=== PATIENT | male | born 1990 | race Caucasian/White ===

== ENCOUNTER 2016-12-03 23:38 | Inpatient (IN) ==
[2016-12-03 23:56] LABS: MANUAL DIFF NEEDED? NO
[2016-12-03 23:58] LABS: BASO% 0.9 % (0.0-0.8); EOS% 1.8 % (0.0-10.0); HEMATOCRIT 43.1 % (42.0-52.0); HEMOGLOBIN 14.5 g/dL (14.0-18.0); IMM GRAN# 0.01 X1000 (0.0-0.04); IMM GRAN% 0.2 % (0.0-0.5); LYMPH# 2.38 X1000 (1.2-3.4); LYMPH% 43.4 % (20.5-51.1); MCH 28.5 PG (27-31); MCHC 33.6 g/dL (33-37); MCV 84.7 FL (81-99); MONO# 0.54 X1000 (0.11-0.59); MONO% 9.9 % (1.7-9.3); MPV 12.7 FL (7.4-10.4); NEUT% 43.8 % (42.2-75.2); PLT 209 X1000 (130-400); RBC 5.09 XMIL (4.7-6.1)
[2016-12-04 00:05] LABS: UR AMPHETAMINES QUAL NONE DETECTED (NONE DETECT); UR BARBITUATES QUAL NONE DETECTED (NONE DETECT); UR BENZODIAZEPIN QUAL NONE DETECTED (NONE DETECT); UR COCAINE QUAL NONE DETECTED (NONE DETECT); UR MDMA QUAL NONE DETECTED (NONE DETECT); UR METHADONE QUAL NONE DETECTED (NONE DETECT); UR METHAMPHETAMINE QUAL NONE DETECTED (NONE DETECT); UR OPIATES QUAL NONE DETECTED (NONE DETECT); UR OXYCODONE QUAL NONE DETECTED (NONE DETECT); UR PCP QUAL NONE DETECTED (NONE DETECT)
[2016-12-04 00:06] LABS: UR CANNABINOIDS QUAL PRESUMPTIVE POSITIVE (NONE DETECT); UR TCA QUAL NONE DETECTED (NONE DETECT)
[2016-12-04 00:13] LABS: BLOOD TYPE ARTERIAL; METHB 1.2 % (0.0-1.5); O2(CT) 18.7 mL/dL (15.0-23.0); PCO2(98.6) 34 mmHg (35-45); PO2(98.6) 100 mmHg (60-100); SAMPLE BLOOD; SAO2 99.1 % (95.0-100.0); THB 14.4 g/dL (11.5-17.4)
[2016-12-04 00:19] LABS: ALLEN TEST YES; DRAW SITE L RADIAL; MODALITY ROOM AIR
[2016-12-04] MEDS ORDERED: NS 1,000 ML IV ONE ×2 (00:35→01:45)
--- NOTE | 2016-12-04 00:42 | EKG Report ---
Test Performed on : 12/04/2016 00:00:17 AM Test Reason : Suspected Overdose Blood Pressure : / mmHG Vent. Rate : 108 BPM Atrial Rate : 108 BPM P-R Int : 150 ms QRS Dur : 086 ms QT Int : 356 ms P-R-T Axes : 082 080 071 degrees QTc Int : 477 ms Sinus tachycardia. Otherwise normal ECG When compared with ECG of 02-DEC-2016 22:13, No significant change was found Unconfirmed Result
[2016-12-04 00:48] LABS: ACETAMINOPHEN 16.7 ug/mL (10-30); AGAP 15; ALBUMIN 4.2 g/dL (3.5-5.0); ALKALINE PHOSPHATASE 55 U/L (32-122); BUN 10 mg/dL (8-22); CALCIUM 8.6 mg/dL (8.8-10.2); CHLORIDE 104 mmol/L (98-107); COSMO 282; GOT 13 U/L (10-34); GPT 16 U/L (10-44); POTASSIUM 3.4 mmol/L (3.5-5.1); SODIUM 142 mmol/L (136-145); TCO2 23 mmol/L (25-35); TOTAL PROTEIN 6.7 g/dL (6.3-8.3)
[2016-12-04 02:47] LABS: ACETAMINOPHEN 15.4 ug/mL (10-30)
[2016-12-04 04:51] LABS: ACETAMINOPHEN 12.7 ug/mL (10-30)
[2016-12-04 06:50] LABS: ACETAMINOPHEN 9.9 ug/mL (10-30)
--- NOTE | 2016-12-04 07:31 | Diag Imaging Result Doc PS360 ---
EXAM: KUB ABDOMEN HISTORY: asa overdose TECHNIQUE: KUB COMMENT: There is some stool in the right upper quadrant. There is no evidence of small bowel or gastric distention. No evidence organomegaly or mass is present. The lower portion of the pelvis is not included on the image. The regional skeleton appears to be intact. IMPRESSION: Nonspecific abdomen. Electronically signed by Vincent Escamilla 12/04/2016 7:28 AM
[2016-12-04] MEDS ORDERED: ATIVAN IM PRN (12:56)
[2016-12-04] MEDS ORDERED: NS 1,000 ML IV SCH (13:06)
[2016-12-04] MEDS ORDERED: NICODERM PATCH TD ONE (13:07)
[2016-12-04] MEDS: NORCO-7.5 PO PRN ×3 (13:49→22:15)
[2016-12-04] MEDS: LIBRIUM PO SCH ×2 (13:49→18:10)
[2016-12-04] MEDS: PROTONIX IV SCH (13:50)
[2016-12-04] MEDS: SODIUM CHLORIDE 0.9% INJ SCH (13:50)
[2016-12-04] MEDS: NS 1,000 ML IV SCH (13:50)
[2016-12-04] MEDS: M.V.I.-12 10 ML, FOLIC ACID 1 MG, MAGNESIUM SULFATE 1 GM, THIAMINE 100 MG in NS 1,000 ML IV SCH (16:31)
[2016-12-04] MEDS: ATIVAN PO PRN ×2 (18:10→23:37)
[2016-12-05] MEDS: NS 1,000 ML IV SCH ×4 (01:18→23:49)
[2016-12-05] MEDS: LIBRIUM PO SCH ×4 (01:19→20:47)
[2016-12-05] MEDS: NORCO-7.5 PO PRN ×6 (03:03→23:50)
[2016-12-05 06:12] LABS: HEMATOCRIT 37.7 % (42.0-52.0); HEMOGLOBIN 12.4 g/dL (14.0-18.0); MCH 28.2 PG (27-31); MCHC 32.9 g/dL (33-37); MCV 85.7 FL (81-99); MPV 12.3 FL (7.4-10.4); RBC 4.4 XMIL (4.7-6.1)
[2016-12-05 06:29] LABS: POTASSIUM 3.7 mmol/L (3.5-5.1); SODIUM 138 mmol/L (136-145)
[2016-12-05 06:30] LABS: AGAP 7; ALBUMIN 3.6 g/dL (3.5-5.0); ALKALINE PHOSPHATASE 48 U/L (32-122); BUN 10 mg/dL (8-22); CALCIUM 8.8 mg/dL (8.8-10.2); CHLORIDE 104 mmol/L (98-107); COSMO 275; GOT 11 U/L (10-34); GPT 12 U/L (10-44); MAGNESIUM 2.1 mg/dL (1.5-2.7); TCO2 27 mmol/L (25-35); TOTAL PROTEIN 5.8 g/dL (6.3-8.3)
[2016-12-05] MEDS: PHENERGAN PO PRN ×3 (07:42→20:46)
[2016-12-05] MEDS: ATIVAN PO PRN ×3 (07:45→20:46)
--- NOTE | 2016-12-05 10:55 | HISTORY AND PHYSICAL ---
CHIEF COMPLAINT: Unresponsive. HISTORY OF PRESENT ILLNESS: This is a 25-year-old gentleman who is well known to our service having multiple admissions related to depression and suicidal attempts, swallowing razor blades repeatedly requiring abdominal surgery. He had has had a complicated course being seen in the emergency room on the afternoon of 12/02/2016 complaining of left upper quadrant flank pain. At that time, he had a negative CAT scan and was discharged from the emergency room. He then presented to the emergency room about 9 hours later stating that he had suicidal ideation and depression. He stated he had no plan at this time, but he was tearful. He was given 2 mg of Ativan and after that he kept requesting to leave the ER. The ER physician reportedly he ultimately walked down that ER as an elopement. This was at approximately 6:00 in the afternoon. He then presented per EMS after being found on the side of the road unresponsive. This was about 11:00 that evening with a report per EMS that the patient had been taking multiple medicines over- the-counter, as well as drinking alcohol. It appears in reading the ER notes that the patient may have taken an epcx-zit-mvryyyn medication containing salicylates, as a received instructions for care regarding monitoring. He did have salicylates, 4 levels that were all less than 3. He was also found to have a blood alcohol level of 153. He was admitted to ICU, given IV hydration for further evaluation and treatment. PAST MEDICAL HISTORY: Depression, Suicidal ideation with multiple suicide attempts and pancreatitis. PAST SURGICAL HISTORY: Appendectomy, tonsillectomy, cervical fusion and foreign object removal from his GI tract twice. SOCIAL HISTORY: He smokes. He drinks alcohol and he does use illicit drugs. ALLERGIES: Zofran which causes a rash. HOME MEDICATIONS: None. REVIEW OF SYSTEMS: Unable to obtain at present. PHYSICAL EXAMINATION: GENERAL: This is a 25-year-old male who is lying in the bed, in no distress. VITAL SIGNS: Blood pressure is 99/50 with a heart rate of 81, respirations are 14 to 18. Temperature is 98.4 degrees. Oxygen saturations are 96% to 100% on room air. HEENT: Head is normocephalic, atraumatic. Pupils equal, round, react to light. EOMs are intact. Sclerae anicteric. Mucous membranes are moist. NECK: Supple with trachea midline. CARDIOVASCULAR: Regular rate and rhythm. No rubs, murmurs, or gallops. S1, S2 appreciated. PULMONARY: Breath sounds are clear with no increased work of breathing noted. GASTROINTESTINAL: Abdomen is soft, nontender, nondistended with bowel sounds in all 4 quadrants. MUSCULOSKELETAL: Good range of motion of joints. EXTREMITIES: No clubbing, cyanosis, or edema. Calves are nontender. Pulses are palpable x4. NEUROLOGIC: He is alert and oriented. Cooperative with cranial nerves 2-12 grossly intact. DIAGNOSTICS: WBC is 5.4 with a hemoglobin of 14.5, hematocrit 43.1 and platelets of 209,000. Sodium is 142, potassium 3.4, BUN 10, creatinine 0.8, with a glucose of 67. Salicylate level is less than 3 on multiple occasions. Tylenol level is 9.9 to 16.7, all within normal limits. Cannabinoids is presumed positive with a blood alcohol of 153. ASSESSMENT AND PLAN: 1. Suicidal ideation. The patient will be placed in ICU for close monitoring. Of note, there is a court hold on the patient for 48 hours which will end December 05 at 4:30. We will attempt to find psychiatric placement for the patient. brush worker's have begun looking. 2. Alcohol abuse. We will start a low Librium taper. Monitor for alcohol withdrawal and delirium tremens. We will give a banana bag. 3. Illicit drug use. Aware. 4. Hypokalemia. We will monitor electrolytes and replete as appropriate. 5. Tobacco abuse. We will give a nicotine patch. Further treatments pending hospital course. Dictated by BLADIMIR Casillas for Robert Chris MD cc: BLADIMIR Casillas MD
[2016-12-05] MEDS ORDERED: NICODERM PATCH ONE (12:50)
[2016-12-05] MEDS: M.V.I.-12 10 ML, FOLIC ACID 1 MG, MAGNESIUM SULFATE 1 GM, THIAMINE 100 MG in NS 1,000 ML IV SCH (14:19)
[2016-12-05] MEDS: PROTONIX IV SCH (14:20)
[2016-12-05] MEDS: SODIUM CHLORIDE 0.9% INJ SCH (14:20)
[2016-12-05] MEDS: NICODERM PATCH TD SCH (14:21)
[2016-12-06] MEDS: NS 1,000 ML IV SCH ×4 (03:00→21:50)
[2016-12-06] MEDS: ATIVAN PO PRN ×4 (04:40→21:50)
[2016-12-06] MEDS: NORCO-7.5 PO PRN ×5 (04:40→20:06)
[2016-12-06] MEDS: LIBRIUM PO SCH ×3 (04:40→21:50)
[2016-12-06] MEDS: PHENERGAN PO PRN ×4 (04:41→21:50)
[2016-12-06] MEDS: PROTONIX PO SCH (07:56)
[2016-12-06] MEDS: NICODERM PATCH TD SCH ×2 (07:56→08:32)
[2016-12-06] MEDS: M.V.I.-12 10 ML, FOLIC ACID 1 MG, MAGNESIUM SULFATE 1 GM, THIAMINE 100 MG in NS 1,000 ML IV SCH (14:10)
--- NOTE | 2016-12-06 15:43 | PROGRESS NOTE ---
DATE: 12/06/2016 SUBJECTIVE: The patient is a little anxious. He states he needs a higher nicotine patch. He wants to go out to the floor where he can walk around more. He denies any suicidal ideation. OBJECTIVE: Vital Signs: Blood pressure is 117/55 with a heart rate of 70, respirations are 16, temperature is 98.3 degrees with a room air saturation of 97%. Cardiovascular: Regular rate and rhythm. S1 and S2 appreciated. Pulmonary: Breath sounds are clear with no increased work of breathing noted. Gastrointestinal: Abdomen is soft, nontender, nondistended with bowel sounds in all 4 quadrants. Extremities: No clubbing, cyanosis, or edema. Calves are nontender and pulses are palpable x4. Neurologic: He is alert and oriented x3 and cooperative. He does make eye contact and engage in conversation. PROBLEM LIST: 1. Suicidal ideation. The patient has remained in ICU for close monitoring. He did deny any suicidal ideation during our exam earlier today. Therefore, we are going to have the patient re-evaluated by Clem Bhandari. 2. Alcohol abuse. We will continue his Librium taper. We have seen no signs of withdrawal or delirium tremens. 3. Illicit drug use, aware. 4. Hypokalemia, resolved. 5. Tobacco abuse. Will continue with nicotine patch. As the patient has stated to the staff that he is not suicidal, we have opted to have him re- evaluated by Clem Bhandari and further treatment will depend on the results of their evaluation. Dictated by BLADIMIR Casillas for Robert Chris MD cc: BLADIMIR Casillas MD
[2016-12-07] MEDS: NORCO-7.5 PO PRN ×3 (00:10→08:21)
[2016-12-07] MEDS: LIBRIUM PO SCH ×2 (04:13→20:07)
[2016-12-07] MEDS: PHENERGAN PO PRN ×3 (04:14→20:07)
[2016-12-07] MEDS: ATIVAN PO PRN ×2 (04:14→10:24)
[2016-12-07] MEDS: NICODERM PATCH TD SCH (08:20)
[2016-12-07] MEDS: PROTONIX PO SCH (08:21)
[2016-12-07] MEDS ORDERED: NORCO-7.5 PO PRN (10:53)
[2016-12-07] MEDS: M.V.I.-12 10 ML, FOLIC ACID 1 MG, MAGNESIUM SULFATE 1 GM, THIAMINE 100 MG in NS 1,000 ML IV SCH (13:21)
--- NOTE | 2016-12-07 14:48 | PROGRESS NOTE ---
DATE: 12/07/2016 SUBJECTIVE: The patient is less anxious today. He voices no specific complaints. OBJECTIVE: Vital Signs: Blood pressure is 137/74 with a heart rate of 85, respirations are 18, temperature is 98.3 degrees oral with room air saturations 96%. Cardiovascular: Regular rate and rhythm. S1 and S2 appreciated. Pulmonary: Breath sounds are clear with no increased work of breathing noted. Gastrointestinal: Abdomen soft, nontender, nondistended. Bowel sounds in all 4 quadrants. Neurologic: He is alert and orient x3. He is cooperative. PROBLEM LIST: 1. Suicidal ideation. The patient continues to remain in ICU for close monitoring as he did tell Clem Bhandari his evaluation yesterday that he was suicidal. Social work will continue to look for placement. 2. Alcohol abuse. Will continue his Librium taper. We have seen no signs of withdrawal or DTs. 3. Illicit drug use. Aware. 4. Hypokalemia resolved. 5. Tobacco abuse. Will continue his nicotine patch. Dictated by BLADIMIR Casillas for Robert Chris MD cc: BLADIMIR Casillas MD
[2016-12-08] MEDS: PHENERGAN PO PRN ×4 (04:21→22:58)
[2016-12-08] MEDS: PROTONIX PO SCH (06:17)
[2016-12-08] MEDS ORDERED: NORCO-7.5 PO PRN (09:21)
[2016-12-08] MEDS ORDERED: LIBRIUM ONE (09:36)
[2016-12-08] MEDS: NICODERM PATCH TD SCH (09:39)
[2016-12-08] MEDS: LIBRIUM PO SCH (09:40)
[2016-12-08] MEDS ORDERED: CELEXA PO SCH (11:00)
--- NOTE | 2016-12-08 12:12 | PROGRESS NOTE ---
DATE: 12/08/2016 SUBJECTIVE: No new changes. Patient still states that if he were to go home and started feeling a certain way that he would hurt himself. OBJECTIVE: Vital Signs: Temperature 97, pulse 90, respiratory rate 16, blood pressure 106/66. Saturation 97% on room air. General: Patient is awake, alert. He is currently in no respiratory distress. HEENT: Normocephalic. Neck: Supple. Cardiovascular: Regular rate. Chest: Clear. ASSESSMENT: 1. Suicidal ideations. 2. Chronic alcohol abuse. 3. Chronic drug abuse. 4. Hypokalemia. 5. Chronic tobacco abuse. PLAN: Discussed with patient that we are going to continue to wean him down and eventually off of Librium and hydrocodone as certainly hydrocodone does not fix anything. He is currently down to once a day on each and will stop after today's dose. We will keep him in the ICU as he continues to state that he is suicidal. We will start on Celexa. Ask Contract Technical Writer to continue to assist in finding further placement. cc: Robert Chris MD
[2016-12-08] MEDS: M.V.I.-12 10 ML, FOLIC ACID 1 MG, MAGNESIUM SULFATE 1 GM, THIAMINE 100 MG in NS 1,000 ML IV SCH (14:30)
[2016-12-09 04:06] VITALS: BP 99/62
[2016-12-09] MEDS: PHENERGAN PO PRN (06:00)
[2016-12-09] MEDS: PROTONIX PO SCH (06:00)
[2016-12-09] MEDS ORDERED: LIBRIUM PO SCH (09:00)
--- NOTE | 2016-12-22 20:34 | PROVIDER DOCUMENTATION ---
This chart was entered by Chiara Castillo Scribe, acting as scribe for Anselmo Booker MD. HPI-Psychological Disorder <Mane Cassidy - Last Filed: 12/04/16 09:19> - General Source: patient - History of Present Illness-Psych Onset/Duration: reports: unsure Timing: reports: improving Severity: reports: moderate Psychiatric Complaints: reports: depressed, suicidal ideation Substance Use: reports: alcohol Previous psych related hospitalizations?: No Similar Symptoms Previously?: Yes Recently seen or treated by another doctor?: Yes <Anselmo Booker - Last Filed: 12/22/16 20:33> - General Chief Complaint: Suicide Attempt Stated Complaint: unresponsive Time Seen by Provider: 12/03/16 23:38 Allergies/Adverse Reactions: Patient Allergies Allergy/AdvReac Type Severity Reaction Status Date / Time ondansetron HCl * Allergy RASH Verified 12/09/16 10:19 [From Zofran (as hydrochloride)] Home Medications: Home Medication List Medication Instructions Recorded Confirmed Last Taken Type NK [No Home Medications] 12/02/16 12/04/16 Unknown History - History of Present Illness-Psych Nature of Presenting Problem: 25 year old M presents to the ED via EMS unresponsive secondary to a possible overdose. Pt awoke while nursing staff was working with pt and states that he took 50 ZzzQuil, 15 Goody's powder, and 2 beers. Pt was in the ED earlier for SI and depression. PT left AMA. Pt was found by a passerby unresponsive in a ditch. Pt was given 2 mg of Narcan COSMETIC CHEMIST with no results. (Chiara Castillo) 25 year old M presents to the ED via EMS unresponsive secondary to a possible overdose. Pt awoke while nursing staff was working with pt and states that he took 50 ZzzQuil, 15 Goody's powder, and 2 beers. Pt was in the ED earlier for SI and depression. PT left AMA. Pt was found by a passerby unresponsive in a ditch. Pt was given 2 mg of Narcan COSMETIC CHEMIST with no results. (Anselmo Booker) Review of Systems - Adult - REVIEW OF SYSTEMS - ADULT Constitutional: denies: chills, fever Eyes: reports: no symptoms reported Ears, Nose, Mouth & Throat: reports: no symptoms reported Cardiovascular: reports: no symptoms reported Respiratory: reports: no symptoms reported Gastrointestinal: denies: nausea, vomiting Genitourinary: reports: no symptoms reported Musculoskeletal: reports: no symptoms reported Integumentary: denies: skin sores/ulcer, skin thickening Neurological: denies: dizziness/vertigo, headache/migraines Psychiatric: reports: depression, suicidal thoughts Endocrine: reports: no symptoms reported Hematologic/Lymphatic: reports: no symptoms reported Allergic/Immunologic: reports: no symptoms reported All Other Systems: Reviewed and Negative <Anselmo Booker - Last Filed: 12/22/16 20:33> Past History - Adult - PAST MEDICAL HISTORY-ADULT Review of Records: reports: Nursing Assessment Review, Medications Reviewed Major Childhood Illnesses: reports: denies history Respiratory: reports: asthma Gastrointestinal: reports: pancreatitis Musculoskeletal: reports: other (cspine surgery) Psychiatric: reports: depression, psychiatric problems, suicide attempt - PRIOR SURGERIES/PROCEDURES Surgical/Procedure History: reports: recent surgery (abdominal surgery due to swallowing razors), appendectomy, tonsillectomy, back/neck (cervical fusion) - IMMUNIZATION STATUS Childhood Immunizations: See Nurse Assessment Flu Vaccine: See Nurse Assessment - FAMILY HISTORY Family History: reviewed, not pertinent - SOCIAL HISTORY Smoking: cigarettes Provider spent 3-5 mins advising pt. on dangers of tobacco.: Discussed manners to quit use, and f/u contacts for add'l counseling. 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 Pt is stable. Repeaed ASA and Acetaminophen and ETOH levels are negative for OD by now. Pt is medically cleared for Psych placement. Pt has a court hold order now and will be placed at [facility].) - CONSULTS/PCP/HOSPITALIST Notification #1 *Consult/PCP/Hospitalist*: Dr. Chris Reason/Comments: Admit to ICU Consult Disposition: Will see in ED, Admit <Zeke Cassidytrevor X - Last Filed: 12/04/16 09:19> - PLAN OF CARE/RESULTS Result Diagrams: 12/05/16 05:15 12/05/16 05:15 - EKG 1 Time of EKG reading by physician:: 00:00 EKG Read and Signed by:: Anselmo Booker EKG Interpretation (*Must complete 3 of following elements*): Normal Rate: 108 Rhythm: sinus tachycardia [place]: normal <Anselmo Booker - Last Filed: 12/22/16 20:33> - PLAN OF CARE/RESULTS Progress/Plan/Lab Results: Orders Category Date Time Status Admit - [facility] Routine AdmDCTranf 12/04/16 01:45 Ordered Cardiac Monitoring DIRECTED Care 12/03/16 23:48 Completed Finger Stick Blood Sugar (ED) DIRECTED Care 12/03/16 23:48 Completed Kumar Cath Insertion ORDERED Care 12/04/16 00:12 Hold Neurological Check Q1h Care 12/04/16 01:45 Completed Restraint/Seclude Init/Renew V NOW Care 12/04/16 00:13 Completed Saline Loc DIRECTED Care 12/03/16 23:48 Completed Vital Signs Order Q4HR Care 12/04/16 01:45 Hold KUB ABDOMEN [RAD] Stat Exams 12/04/16 00:31 Completed ABG [RESP] Routine Lab 12/03/16 23:38 Completed ACETAMINOPHEN [TDM] Stat Lab 12/03/16 23:43 Completed ACETAMINOPHEN [TDM] Stat Lab 12/04/16 02:20 Completed ACETAMINOPHEN [TDM] Timed Lab 12/04/16 04:05 Completed ACETAMINOPHEN [TDM] Timed Lab 12/04/16 06:14 Completed ALCOHOL BLOOD Stat Lab 12/03/16 23:43 Completed CBC WITH ELECTRONIC DIFF [HEME] Stat Lab 12/03/16 23:43 Completed COMPREHENSIVE METABOLIC PANEL [CHEM] Stat Lab 12/03/16 23:43 Completed SALICYLATES [TDM] Stat Lab 12/03/16 23:43 Completed SALICYLATES [TDM] Stat Lab 12/04/16 02:20 Completed SALICYLATES [TDM] Timed Lab 12/04/16 04:05 Completed SALICYLATES [TDM] Timed Lab 12/04/16 06:14 Completed URINE DRUG SCREEN PL Stat Lab 12/03/16 23:35 Completed 0.9% Sodium Chloride Inj [Ns] 1,000 ml Med 12/04/16 01:45 Discontinued IV 150 mls/hr 0.9% Sodium Chloride Inj [Ns] 1,000 ml Med 12/04/16 00:35 Discontinued IV 999 mls/hr Oxygen Device Routine Oth 12/04/16 01:47 Completed Pulse Oximetry Stat Oth 12/03/16 23:48 Completed EKG [EKG] Stat Ther 12/03/16 23:48 Draft Departure - Departure Date of Disposition Decision: 12/04/16 Time of Disposition Decision: 07:28 Certified Medical Emergency: Emergent - Critical Care Note This patient required my direct & personal management of CC.: Yes Total Time (mins): 45 Critical Care Statement: This patient required my direct personal management to treat or rule out processes, the absence of which, could potentiallly result in sudden, clinically significant life or limb threatening deterioration. <Mane Cassidy - Last Filed: 12/04/16 09:19> - Departure Date of Disposition Decision: 12/04/16 Time of Disposition Decision: 07:29 Certified Medical Emergency: Emergent - Critical Care Note This patient required my direct & personal management of CC.: Yes <Anselmo Booker - Last Filed: 12/22/16 20:33> - Departure DIAGNOSIS: Suicide attempt Psychosis Qualifiers: Psychosis type: unspecified psychosis type Qualified Code(s): F29 - Unspecified psychosis not due to a substance or known physiological condition Overdose Qualifiers: Encounter type: initial encounter Injury intent: intentional self-harm Qualified Code(s): T50.902A - Poisoning by unspecified drugs, medicaments and biological substances, intentional self-harm, initial encounter Disposition: ADMITTED INPATIENT 09 Condition: Stable This chart was documented by the indicated scribe, (Chiara Castillo, [place]) and accurately reflects the services I performed and decisions made by me, Anselmo Booker MD, as attested by the provider's signature.
--- NOTE | 2016-12-29 11:41 | DISCHARGE SUMMARY ---
ADMISSION DATE: 12/04/2016 DISCHARGE DATE: 12/09/2016 DISCHARGE DIAGNOSES: 1. Patient left against medical advice. 2. Suicidal ideations. Patient declined any further treatment at [facility] or any other facility. He states he is no longer suicidal. 3. Chronic alcohol abuse. 4. Illicit drug use. 5. Hypokalemia. 6. Chronic tobacco abuse. BRIEF HOSPITAL COURSE: The patient is a 25-year-old male who unfortunately has had multiple previous admissions due to depression, suicide attempts, swallowing razor blades requiring surgery etc. This time as noted on the HPI, he was admitted for court hold that ended on 12/05/2016 at 4:30 p.m. The patient actually did intentionally stay in the hospital several more days, each day stating that he would harm himself if he left the hospital, [facility]. I did not feel as though they were the appropriate facility as he is a dual diagnosis patient. Patient remained in the hospital for several days as we were attempting to look for a bed for him elsewhere. The patient continued to have multiple days of severe complaints of pain throughout his entire body that would only be helped by IV Dilaudid by his on admission. After several days, no reasoning for his severe pain was found and therefore the IV Dilaudid was discontinued. He continued to complain of the need of IV Dilaudid and the need to continue IV Dilaudid. After patient realized that this was no longer an option and that he was not going to be given IV Dilaudid in the hospital any further, the patient decided that he no longer was suicidal. He signed a no harm contract and left the hospital without any further assistance with discharge planning. cc: Robert Chris MD
== END 2016-12-09 08:29 | disposition left against medical advice (07) ==
LOC: P.ED 23:38 → P.EDIPHOLD 12-04 03:08 → P.ICU 12-04 12:00
PROVIDERS: ATTEND Family Medicine

== ENCOUNTER 2017-03-07 04:05 | Inpatient (IN) ==
--- NOTE | 2017-03-07 04:54 | EKG Report ---
Test Performed on : 03/07/2017 04:28:26 AM Test Reason : psych Blood Pressure : / mmHG Vent. Rate : 075 BPM Atrial Rate : 075 BPM P-R Int : 158 ms QRS Dur : 104 ms QT Int : 398 ms P-R-T Axes : 139 126 086 degrees QTc Int : 444 ms Suspect arm lead reversal, interpretation assumes no reversal Unusual P axis, possible ectopic atrial rhythm. Right axis deviation Abnormal ECG When compared with ECG of 04-DEC-2016 00:00, Ectopic atrial rhythm. has replaced Sinus rhythm. QRS axis shifted right Unconfirmed Result
[2017-03-07 05:14] LABS: MANUAL DIFF NEEDED? NO
[2017-03-07 05:22] LABS: BILIRUBIN URINE NEGATIVE (NEGATIVE); BLOOD URINE NEGATIVE (NEGATIVE); CLARITY CLEAR (CLEAR); COLOR STRAW; GLUCOSE URINE NEGATIVE (NEGATIVE); LEUKOCYTES URINE NEGATIVE (NEGATIVE); NITRITE URINE NEGATIVE (NEGATIVE); PROTEIN URINE NEGATIVE (NEGATIVE); SP GRAVITY URINE 1.005; UROBILINOGEN URINE NORMAL
[2017-03-07 05:24] LABS: BASO% 0.8 % (0.0-0.8); EOS# 0.44 X1000 (0.0-0.7); EOS% 7.3 % (0.0-10.0); HEMATOCRIT 39.5 % (42.0-52.0); HEMOGLOBIN 13.2 g/dL (14.0-18.0); LYMPH# 3.06 X1000 (1.2-3.4); LYMPH% 50.7 % (20.5-51.1); MCH 27.5 PG (27-31); MCHC 33.4 g/dL (33-37); MCV 82.3 FL (81-99); MONO# 0.65 X1000 (0.11-0.59); MONO% 10.8 % (1.7-9.3); MPV 11.4 FL (7.4-10.4); NEUT% 30.4 % (42.2-75.2); PLT 206 X1000 (130-400)
[2017-03-07 05:25] LABS: UR AMPHETAMINES QUAL NONE DETECTED (NONE DETECT); UR BARBITUATES QUAL NONE DETECTED (NONE DETECT); UR BENZODIAZEPIN QUAL NONE DETECTED (NONE DETECT); UR COCAINE QUAL NONE DETECTED (NONE DETECT); UR MDMA QUAL NONE DETECTED (NONE DETECT)
[2017-03-07 05:26] LABS: UR CANNABINOIDS QUAL NONE DETECTED (NONE DETECT); UR METHADONE QUAL NONE DETECTED (NONE DETECT); UR METHAMPHETAMINE QUAL NONE DETECTED (NONE DETECT); UR OPIATES QUAL NONE DETECTED (NONE DETECT); UR OXYCODONE QUAL NONE DETECTED (NONE DETECT); UR PCP QUAL NONE DETECTED (NONE DETECT); UR TCA QUAL NONE DETECTED (NONE DETECT)
--- NOTE | 2017-03-07 05:33 | PROVIDER DOCUMENTATION ---
HPI-Psychological Disorder - General Chief Complaint: Foreign Body Stated Complaint: SWALLOWED FOREIGN BODY Time Seen by Provider: 03/07/17 05:28 Source: patient, EMS Allergies/Adverse Reactions: Patient Allergies Allergy/AdvReac Type Severity Reaction Status Date / Time prochlorperazine Allergy Unknown Verified 03/07/17 04:16 [From Compazine] Home Medications: Home Medication List Medication Instructions Recorded Confirmed Last Taken Type NK [No Home Medications] 12/02/16 03/07/17 Unknown History - History of Present Illness-Psych Nature of Presenting Problem: PATIENT IS INEBRIATED. HE AND HIS FRIEND WERE DRINKING AND SWALLOWED FOREIGN BODIES AND BOTH CALLED AMBULANCE AND INFORMED THEM THAT THEY WERE BOTH SUICIDAL. HE ALLEGEDLY SWALLOWED RAZOR BLADES. HE HAS DONE THIS BEFORE IN THE PAST. HE DENIES ANY COMPLAINTS. NO ABDOMINAL PAIN AND NO ACTIVE BLEEDING. Onset/Duration: reports: 1/2 hour ago Timing: reports: still present Severity: reports: mild Situational problems related to:: reports: N/A, significant other, sexual orientation Psychiatric Complaints: reports: angry, agitated Substance Use: reports: alcohol, marijuana, amphetamines Patient arrived by:: EMS called by patient Similar Symptoms Previously?: Yes Recently seen or treated by another doctor?: Yes - Suicidal Ideation Suicide Risk Assessment: male sex, drug or ETOH abuse Clinician's estimation of suicide risk?: low risk Suicidal Attempt Method: reports: Overdose Review of Systems - Adult - REVIEW OF SYSTEMS - ADULT Constitutional: reports: no symptoms reported Eyes: reports: no symptoms reported Ears, Nose, Mouth & Throat: reports: no symptoms reported Cardiovascular: reports: no symptoms reported Respiratory: reports: no symptoms reported Gastrointestinal: reports: no symptoms reported Genitourinary: reports: no symptoms reported Musculoskeletal: reports: no symptoms reported Integumentary: reports: no symptoms reported Neurological: reports: no symptoms reported Psychiatric: reports: see HPI, alcohol/drug dependence, depression, emotional problems, suicidal thoughts Endocrine: reports: no symptoms reported Hematologic/Lymphatic: reports: no symptoms reported Allergic/Immunologic: reports: no symptoms reported All Other Systems: Reviewed and Negative Past History - Adult - PAST MEDICAL HISTORY-ADULT Review of Records: reports: Old Records Reviewed, Nursing Assessment Review, Medications Reviewed, Social history reviewed & non-contributory. Respiratory: reports: asthma Gastrointestinal: reports: pancreatitis Musculoskeletal: reports: other (cspine surgery) Psychiatric: reports: depression, psychiatric problems, suicide attempt - PRIOR SURGERIES/PROCEDURES Surgical/Procedure History: reports: recent surgery (abdominal surgery due to swallowing razors), appendectomy, tonsillectomy, back/neck (cervical fusion) - IMMUNIZATION STATUS Childhood Immunizations: See Nurse Assessment Flu Vaccine: See Nurse Assessment - FAMILY HISTORY Family History: reviewed, not pertinent Physical Exam-Psych Focus - Physical Exam-Psych Initial Vital Signs Reviewed: Yes Appearance: appropriate appearance Neurological: alert, agitated Behavior/Eye Contact/Speech: avoids eye contact Thoughts/Hallucinations: normal thought pattern, no apparent hallucination HENMT: normocephalic/atraumatic, moist mucous membranes Neck: non-tender Respiratory: chest non-tender, lungs clear, normal breath sounds Cardiovascular: normal peripheral pulses, regular rate, rhythm Abdominal Exam: normal bowel sounds, non tender Lymphatic: no adenopathy Back Exam: normal inspection Extremity: normal range of motion Integumentary: normal color Progress - PLAN OF CARE/RESULTS Progress/Plan/Lab Results: Vital Signs - 8 hr 03/07/17 04:10 Temperature 98.5 F Pulse Rate 83 Respiratory Rate 20 Blood Pressure 141/74 O2 Sat by Pulse Oximetry 98 Laboratory Results - last 24 hr 03/07/17 03/07/17 03/07/17 04:35 04:35 04:50 WBC RBC Hgb Hct MCV MCH MCHC RDW Std Deviation Plt Count MPV Immature Gran % (Auto) Neut % (Auto) Lymph % (Auto) [place] % (Auto) Eos % (Auto) Baso % (Auto) Immature Gran # (Auto) Neut # (Auto) Lymph # (Auto) [place] # (Auto) Eos # (Auto) Baso # (Auto) Sodium 140 Potassium 3.3 L Chloride 104 Carbon Dioxide 23 L Anion Gap 13 BUN 9 Creatinine 0.7 Estimated GFR/1.73 m2 > 60 BUN/Creatinine Ratio 13 Glucose 84 Calculated Osmolality 277 Calcium 8.7 L Total Bilirubin 0.20 AST 42 H ALT 78 H Alkaline Phosphatase 72 Total Protein 7.5 Albumin 4.2 Globulin 3.0 Albumin/Globulin Ratio 1.0 TSH Free T4 Urine Source CLEAN CATCH Urine Color STRAW Urine Clarity CLEAR Urine pH 7.0 Ur Specific [place] 1.005 Urine Protein NEGATIVE Urine Ketones NEGATIVE Urine Blood NEGATIVE Urine Nitrite NEGATIVE Urine Bilirubin NEGATIVE Urine Urobilinogen NORMAL Urine Microscopic RBC Not Reportable Urine WBC NEGATIVE Urine Microscopic WBC NS Ur Epithelial Cells <10 Urine Bacteria NEGATIVE Urine Glucose NEGATIVE Urine Opiates Screen NONE DETECTED Ur Oxycodone Screen NONE DETECTED Urine Methadone Screen NONE DETECTED Ur Barbituates Screen NONE DETECTED Ur Tricyclics Screen NONE DETECTED Ur Phencyclidine Scrn NONE DETECTED Ur Amphetamines Screen NONE DETECTED U Methamphetamines Scrn NONE DETECTED Urine MDMA Screen NONE DETECTED U Benzodiazepines Scrn NONE DETECTED Urine Cocaine Screen NONE DETECTED U Cannabinoids Screen NONE DETECTED Plasma/Serum Ethyl Alc 03/07/17 03/07/17 03/07/17 04:50 04:50 04:50 WBC 6.04 RBC 4.80 Hgb 13.2 L Hct 39.5 L MCV 82.3 MCH 27.5 MCHC 33.4 RDW Std Deviation 13.7 Plt Count 206 MPV 11.4 H Immature Gran % (Auto) 0.0 Neut % (Auto) 30.4 L Lymph % (Auto) 50.7 [place] % (Auto) 10.8 H Eos % (Auto) 7.3 Baso % (Auto) 0.8 Immature Gran # (Auto) 0.00 Neut # (Auto) 1.84 Lymph # (Auto) 3.06 [place] # (Auto) 0.65 H Eos # (Auto) 0.44 Baso # (Auto) 0.05 Sodium Potassium Chloride Carbon Dioxide Anion Gap BUN Creatinine Estimated GFR/1.73 m2 BUN/Creatinine Ratio Glucose Calculated Osmolality Calcium Total Bilirubin AST ALT Alkaline Phosphatase Total Protein Albumin Globulin Albumin/Globulin Ratio TSH 1.45 Free T4 0.95 Urine Source Urine Color Urine Clarity Urine pH Ur Specific [place] Urine Protein Urine Ketones Urine Blood Urine Nitrite Urine Bilirubin Urine Urobilinogen Urine Microscopic RBC Urine WBC Urine Microscopic WBC Ur Epithelial Cells Urine Bacteria Urine Glucose Urine Opiates Screen Ur Oxycodone Screen Urine Methadone Screen Ur Barbituates Screen Ur Tricyclics Screen Ur Phencyclidine Scrn Ur Amphetamines Screen U Methamphetamines Scrn Urine MDMA Screen U Benzodiazepines Scrn Urine Cocaine Screen U Cannabinoids Screen Plasma/Serum Ethyl Alc 224 H Orders Category Date Time Status Admit - [facility] Routine AdmDCTranf 03/07/17 07:18 Ordered Call Admitting on Arrival AT ADMISSION Care 03/07/17 07:20 Active FLAT/UPRIGHT ABD/1 VIEW CHEST [RAD] Stat Exams 03/07/17 04:29 Taken ALCOHOL BLOOD Stat Lab 03/07/17 04:50 Completed CBC WITH ELECTRONIC DIFF [HEME] Stat Lab 03/07/17 04:50 Completed COMPREHENSIVE METABOLIC PANEL [CHEM] Stat Lab 03/07/17 04:50 Completed FREE T4 Stat Lab 03/07/17 04:50 Results TSH Stat Lab 03/07/17 04:[address] W/POSS RFLX CULT [URINALYSIS] Stat Lab 03/07/17 04:35 Completed URINE CULTURE [RM] Routine Lab 03/07/17 05:38 [address] S[address]EN [address] Stat Lab 03/07/17 04:35 Completed VITAMIN B12 Stat Lab 03/07/17 04:50 Results EKG [EKG] Stat Ther 03/07/17 04:24 Draft Transfer/Admit Order [TRANSFER] Routine Transfer 03/07/17 07:17 Ordered Result Diagrams: 03/07/17 04:50 03/07/17 04:50 - CHANGE OF SHIFT REPORT (ED Provider) Report Given and Care Transferred to:: [facility] Time of Transfer: 06:00 Items Pending: Labs, XRAY Results, Physician Consult/Arrival Departure - Departure Date of Disposition Decision: 03/07/17 Time of Disposition Decision: 07:21 DIAGNOSIS: Ingestion of foreign body, Alcohol dependence Disposition: HOME 01 Certified Medical Emergency: Emergent Condition: Stable Additional Freetext Instructions: ED Follow Up Instructions: You have been treated by a care provider in the Emergency Department. These instructions are being provided to you so you can have an understanding of how to care for yourself upon discharge. Upon discharge from the Emergency Department, you are responsible for making arrangements for follow-up care by a physician of your choice. Take all prescribed medications as directed. Return to the Emergency Department immediately for any new or worsening symptoms. You may call the Physician Referral phone number at [phone] to obtain a list of Physicians who are taking new patients. Referrals and Follow-Ups: None,PCP [Primary Care Provider] - - Critical Care Note This patient required my direct & personal management of CC.: No Attestation - Physician/ BLAKE Attestation Patient care was provided by Advanced Practice Provider:: No The physician spent face to face time with patient:: Yes Advanced Practice Provider documentation review:: Supervising physician onsite and consulted in the evaluation and care of this patient. The physician did have a face to face encounter with the patient.
[2017-03-07 05:37] LABS: URINE CULTURE PL NEEDED? YES; URINE EPITHELIAL CELLS <10 /HPF (<10); URINE SOURCE CLEAN CATCH; URINE WBC NS /HPF (<10)
[2017-03-07 05:40] LABS: AGAP 13; ALBUMIN 4.2 g/dL (3.5-5.0); ALKALINE PHOSPHATASE 72 U/L (32-122); BUN 9 mg/dL (8-22); CALCIUM 8.7 mg/dL (8.8-10.2); CHLORIDE 104 mmol/L (98-107); COSMO 277; GOT 42 U/L (10-34); GPT 78 U/L (10-44); POTASSIUM 3.3 mmol/L (3.5-5.1); SODIUM 140 mmol/L (136-145); TCO2 23 mmol/L (25-35); TOTAL PROTEIN 7.5 g/dL (6.3-8.3)
[2017-03-07 05:51] LABS: FREE T4 0.95 ng/dL (0.93-1.70)
--- NOTE | 2017-03-07 08:15 | Diag Imaging Result Doc PS360 ---
EXAM: FLAT/UPRIGHT ABD/1 VIEW CHEST INDICATION: psych eval for eating razor blades TECHNIQUE: 4 views COMPARISON: 12/09/2016 FINDINGS: There are three ingested metallic foreign bodies projecting of the left upper quadrant and probably within the lumen of the stomach. There are unremarkable bowel gas and stool patterns. There is no obstructive bowel pattern. There is no evidence of large volume free abdominal gas. There is no evidence of organomegaly. The lungs are grossly clear. There is no discrete pleural fluid collection or pneumothorax. The cardiomediastinal silhouette and central vasculature are grossly unremarkable. IMPRESSION: Three metallic ingested foreign bodies identified in the left upper quadrant, likely in the lumen of the stomach. Electronically signed by Aj Tuttle 03/07/2017 8:13 AM
[2017-03-07] MEDS ORDERED: PHENOBARBITAL IV PRN (10:21)
[2017-03-07] MEDS: SODIUM CHLORIDE 0.9% INJ SCH ×2 (10:25→21:02)
[2017-03-07] MEDS: PROTONIX IV SCH ×2 (10:25→21:02)
[2017-03-07] MEDS ORDERED: M.V.I.-12 10 ML, FOLIC ACID 1 MG, MAGNESIUM SULFATE 1 GM, THIAMINE 100 MG in NS 1,000 ML IV ONE (10:29)
[2017-03-07] MEDS: NS 1,000 ML IV SCH (10:32)
--- NOTE | 2017-03-07 10:50 | HISTORY AND PHYSICAL ---
26-year-old, who presented to [facility]. He and his friend were drinking, swallowed foreign bodies. Allegedly they were razor blades. Denied any complaints of abdominal pain. Unable to get much in the way of past medical history. Substance use report was alcohol, marijuana and amphetamines. I am not sure if he has done this before but the report was that he has swallowed foreign bodies before. Old records, nursing assessment review. He has a history of pancreatitis, history of asthma, history of depression and psychiatric problems, suicide attempts in the past. SURGICAL HISTORY: Abdominal surgery due to swallowing razors, appendectomy, tonsillectomy, back and neck cervical fusion. FAMILY HISTORY: Could not get anything relevant. Not able to give us much history. Unable to get review of systems. He denies abdominal pain. No chest pain. Denies any shortness of breath. Does have a history of asthma. HEENT: Otherwise no complaints. Musculoskeletal/Neurologic: No focal complaints. He has not had any blood in the bowels. No blood from his urine. EXAM: On presentation, temp 97.2 degrees, pulse 78, respirations 18, blood pressure 114/58. HEENT: His pupils are equal. Neck: Veins nondistended. Lungs: Clear to auscultation. Cardiovascular Exam: Regular rhythm and rate without murmur or S3. Abdomen: Soft. Skin: Warm and dry. LAB: White count 6040, hematocrit 39, platelet count 206,000. Sodium 140, potassium 3.3, chloride 104. BUN 9, creatinine 0.7. Liver functions mildly elevated. AST 42, ALT was 78. Urine drug screen was negative for opiates, oxycodone, methadone, barbiturates, tricyclics, phencyclidine, amphetamines, methamphetamines, MDMA, benzodiazepines cocaine and cannabinoids. Alcohol level was 224. Urinalysis unremarkable. Abdominal x-ray: Metallic ingested foreign body is identified in the left upper quadrant likely in the lumen of the stomach. ASSESSMENT AND PLAN: 1. Swallowed foreign bodies. Report was that it was razor blades. Sent here. Dr. Brenner to see. Suspect he will get EGD and try and retrieve the foreign bodies. 2. Alcohol intoxication. May have trouble with withdrawal, we will see. 3. Psychiatric history of depression and anxiety. No home medicines listed. He is not able to give much history at this time. Apparently also had a cast on his hand that he took off and he is concerned about one of his toes hurting and could be broken. I will need to wait until he wakes up a little bit and we can pursue doing some radiographic studies on both the hand and the foot. Right now we will give him some normal saline. We will run it at 85 mL an hour. We will let him have 1-2 mg of Ativan IV q. hour p.r.n. evidence of withdrawal, agitation, anxiety. We can also use phenobarbital if necessary 130 mg IV q.[address] Brenner consulted. cc: Saúl Doherty MD
--- NOTE | 2017-03-07 11:06 | HISTORY AND PHYSICAL ---
ADDENDUM: Looking back at his history, he has had multiple admissions for swallowing foreign bodies. He has history of neuropathic pain for which he has been on Neurontin. He has had multiple procedures to remove foreign bodies. He has had an appendectomy, tonsillectomy, C-spine fusion with titanium plates in C-spine. He has had exploratory laparotomy after he swallowed some razor blades trying to commit suicide. He has had several times trying to commit suicide. Long history of depression. His mother and father apparently within a year of each other. Mom when he was 20. Father when he was 21. He has no primary care physician. cc: Saúl Doherty MD
[2017-03-07] MEDS: HUMULIN R SUBQ SCH ×3 (11:23→21:14)
[2017-03-07 11:30] LABS: AMYLASE 45 U/L (20-200); LIPASE 17 U/L (13-60)
--- NOTE | 2017-03-07 11:58 | Diag Imaging Result Doc PS360 ---
EXAM: FOOT COMPLETE RIGHT INDICATION: Pain TECHNIQUE: 3 views COMPARISON: None. FINDINGS: There is no discrete fracture, dislocation, or significant intrinsic osseous lesion. The visualized joint spaces are essentially unremarkable. The surrounding soft tissues are essentially unremarkable. IMPRESSION: No evidence of acute osseous abnormality. Electronically signed by Aj Tuttle 03/07/2017 11:56 AM
--- NOTE | 2017-03-07 12:03 | Diag Imaging Result Doc PS360 ---
EXAM: HAND COMPLETE RIGHT INDICATION: right hand pain TECHNIQUE: 3 views COMPARISON: None. FINDINGS: There is a fracture involving the distal fifth metacarpal with palmar angulation of the distal fragment. There is no other definite fracture, dislocation, or significant intrinsic osseous lesion. The visualized joint spaces are essentially unremarkable. There is suggestion of minimal soft tissue edema around the fifth metacarpal. IMPRESSION: Fracture of the fifth metacarpal as described. Electronically signed by Aj Tuttle 03/07/2017 12:01 PM
--- NOTE | 2017-03-07 12:05 | Diag Imaging Result Doc PS360 ---
EXAM: WRIST COMPLETE RIGHT INDICATION: right wrist pain TECHNIQUE: 3 views COMPARISON: None. FINDINGS: There is a fracture involving the fifth metacarpal distally, which is detailed in a separate right hand radiograph report performed at the same time. There is no discrete fracture, dislocation, or significant intrinsic osseous lesion involving the intrinsic bones of the wrist. The visualized joint spaces are essentially unremarkable. The surrounding soft tissues are essentially unremarkable. IMPRESSION: Fracture of the distal fifth metacarpal. No evidence of fracture involving the intrinsic bones of the wrist. Electronically signed by Aj Tuttle 03/07/2017 12:02 PM
[2017-03-07] MEDS ORDERED: TYLENOL PO ONE (14:01)
[2017-03-07] MEDS ORDERED: QUELICIN (DOSE) ONE (14:52)
[2017-03-07] MEDS ORDERED: DIPRIVAN 1% ONE (14:52)
[2017-03-07] MEDS ORDERED: XYLOCAINE-MPF 2% ONE (14:53)
[2017-03-07] MEDS: MORPHINE IV PRN ×2 (18:45→21:53)
[2017-03-07] MEDS: ZOFRAN IV PRN (18:45)
[2017-03-08] MEDS: MORPHINE IV PRN ×6 (00:43→20:30)
[2017-03-08] MEDS: NS 1,000 ML IV SCH ×4 (02:45→20:45)
[2017-03-08] MEDS: ZOFRAN IV PRN ×2 (06:10→12:20)
[2017-03-08] MEDS: HUMULIN R SUBQ SCH ×4 (06:15→21:45)
[2017-03-08 07:09] LABS: MANUAL DIFF NEEDED? NO
[2017-03-08 07:15] LABS: BASO% 0.8 % (0.0-0.8); EOS% 5.7 % (0.0-10.0); HEMATOCRIT 36.8 % (42.0-52.0); HEMOGLOBIN 12.2 g/dL (14.0-18.0); LYMPH# 2.48 X1000 (1.2-3.4); MCH 28.2 PG (27-31); MCHC 33.2 g/dL (33-37); MCV 85.2 FL (81-99); MONO# 0.54 X1000 (0.11-0.59); MONO% 10.2 % (1.7-9.3); MPV 11.8 FL (7.4-10.4); NEUT% 36.3 % (42.2-75.2); PLT 163 X1000 (130-400); RBC 4.32 XMIL (4.7-6.1)
[2017-03-08 07:30] LABS: PROTIME 10.5 Seconds (9.2-11.7); PTT 26.3 Seconds (22.0-36.0)
[2017-03-08 07:40] LABS: AGAP 12; ALBUMIN 3.9 g/dL (3.5-5.0); ALKALINE PHOSPHATASE 60 U/L (32-122); BUN 9 mg/dL (8-22); CALCIUM 8.7 mg/dL (8.8-10.2); CHLORIDE 104 mmol/L (98-107); COSMO 284; GOT 14 U/L (10-34); GPT 46 U/L (10-44); POTASSIUM 3.7 mmol/L (3.5-5.1); SODIUM 143 mmol/L (136-145); TCO2 27 mmol/L (25-35); TOTAL BILIRUBIN 0.34 mg/dL (0.20-1.00); TOTAL PROTEIN 5.7 g/dL (6.3-8.3)
[2017-03-08] MEDS: PROTONIX IV SCH ×2 (09:19→20:31)
[2017-03-08] MEDS: M.V.I.-12 10 ML, FOLIC ACID 1 MG, MAGNESIUM SULFATE 1 GM, THIAMINE 100 MG in NS 1,000 ML IV SCH (09:19)
[2017-03-08] MEDS: SODIUM CHLORIDE 0.9% INJ SCH ×2 (09:19→20:31)
--- NOTE | 2017-03-08 10:13 | Diag Imaging Result Doc PS360 ---
EXAM: ABDOMEN FLAT/UPRIGHT INDICATION: foreign body ingestion TECHNIQUE: 3 views COMPARISON: 03/07/2017 FINDINGS: The ingested metallic radiopaque foreign bodies seen on the previous study are not identified on the current study. There are unremarkable bowel gas and stool patterns. There is no evidence of large volume free abdominal gas. There is no obstructive bowel pattern. IMPRESSION: Apparent interval removal or passage of the metallic radiopaque foreign bodies seen previously. Electronically signed by Aj Tuttle 03/08/2017 10:11 AM
--- NOTE | 2017-03-08 14:59 | PROGRESS NOTE ---
DATE: 03/08/2017 SUBJECTIVE: Mr. Garces says his tummy is still bothering him and does not want to go home today. He is still pretty uncomfortable. He is awake and alert. OBJECTIVE: Vital signs: Temperature 97.6 degrees, pulse 60, respirations 20, blood pressure 123/70. Lungs: Clear in all lung martinez. Cardiovascular: Regular rate without murmur or S3. Abdomen: Soft. Skin: Warm and dry. DIAGNOSTIC DATA: Urine output is 1400 mL. Fingersticks 103, 63 and 92. Today, white count 5280, hematocrit 36, platelet count 163,000. Chemistry: Sodium 143, potassium 3.7, chloride 104, BUN 9, creatinine 0.9. Blood sugars 71, 63, 102, 92. Abdominal x-ray from this morning shows no foreign objects. Dr. Cortez performed EGD yesterday and apparently was able to extract all of the metal objects. ASSESSMENT AND PLAN: He would like to stay today. We can check another x-ray in the morning. Keep him on his present fluids. He is getting Ativan for anxiety. He is getting morphine for pain. He did come in with alcohol intoxication, so we will also look for signs of alcohol withdrawal. He is on a GI soft diet. cc: Saúl Doherty MD
--- NOTE | 2017-03-08 18:15 | OPERATIVE NOTE ---
PROCEDURE DATE: 03/07/2017 ATTENDING PHYSICIAN: Dr. Mustafa. PRIMARY DOCTOR: None. PROCEDURE: Esophagogastroduodenoscopy with foreign body removal. PREOPERATIVE DIAGNOSES: The patient ingested 3 razor blades while he was drunk at 2 a.m. this morning. He came to the [facility] and was transferred here for emergent EGD. The patient has a prior history of depression, suicidal ideation, had repeated episodes of foreign body ingestion in the past requiring multiple EGDs. POSTOP DIAGNOSES: 1. Esophagitis the distal esophagus. 2. Z-line was at 41 mm. 3. The 3 razor blades the body of the stomach which were removed using snare. 4. Erosive gastritis in the body. 5. Normal fundus, cardia, incisura. 6. Normal duodenal bulb 2nd portion of duodenum. ESTIMATED BLOOD LOSS: Minimal. COMPLICATIONS: None. ANESTHESIA: General anesthesia. He required endotracheal intubation. SPECIMEN COLLECTED: Is 3 razor blades which were photographed and discarded. PROCEDURE: After informed consent the patient understood risks, benefits, indications, alternatives the patient prepped for EGD. The risks of procedure infection, bleeding, pain, trauma to the surrounding structures, perforation, explained the patient among others and he acknowledged understanding and agreed to proceed. The patient was brought to the OR. He was turned into supine position. He underwent general anesthesia. After that he was turned to left lateral position. A bite block was placed in patient mouth. After adequate anesthesia the upper scope was introduced through the oral orifice and traversed to the 2nd and 3rd portion of the duodenum. The esophagus showed evidence of erythema, erosions in the distal esophageal and erosive esophagitis LA grade 2. Z-line visualized at 41 cm, evidence of 3 razor safety blades in the body of the stomach which we removed 1 at each time using a snare successfully. At the end of the procedure we went and saw evidence of erosive gastritis in the body and antrum with normal fundus and incisura on retroflexion. The duodenal bulb and 2nd were normal. The patient tolerated procedure well and is being monitored in OR in stable condition. RECOMMENDATIONS: 1. The patient will be on Protonix twice daily during the inpatient stay and on discharge he will need Prilosec 40 mg daily 30 days and then he will be switched to Zantac 150 mg p.o. b.i.d. 2. The patient will avoid alcohol and avoid NSAIDs. He will follow gastroesophageal reflux life changes. 3. The patient had binge drinking last night. He may need to be monitored for withdrawal. 4. The patient will need a psychiatric evaluation. I had discussed that with the primary care team. cc: MD Dr. Bessy Rhoades
[2017-03-08] MEDS ORDERED: DULCOLAX PR SCH (21:00)
[2017-03-08] MEDS: ATIVAN IV PRN (22:44)
[2017-03-09] MEDS: MORPHINE IV PRN ×4 (00:04→13:37)
[2017-03-09] MEDS: ATIVAN IV PRN (01:49)
[2017-03-09] MEDS: HUMULIN R SUBQ SCH ×2 (06:05→11:31)
--- NOTE | 2017-03-09 07:40 | Diag Imaging Result Doc PS360 ---
KUB ABDOMEN - 03/09/2017 INDICATION: foreign body TECHNIQUE: COMPARISON: 03/08/2017 FINDINGS: There is a nonobstructive bowel gas pattern. No free air or abdominal calcifications. No radiodense foreign bodies. IMPRESSION: No acute disease. Electronically signed by Caio Heaton 03/09/2017 7:38 AM
[2017-03-09] MEDS: M.V.I.-12 10 ML, FOLIC ACID 1 MG, MAGNESIUM SULFATE 1 GM, THIAMINE 100 MG in NS 1,000 ML IV SCH ×2 (07:54→08:06)
[2017-03-09] MEDS: PROTONIX IV SCH ×2 (07:54→08:06)
[2017-03-09] MEDS: SODIUM CHLORIDE 0.9% INJ SCH (07:54)
--- NOTE | 2017-03-09 10:31 | PROGRESS NOTE ---
DATE: 03/08/2017 SUBJECTIVE: The patient currently resting in bed. He denies any new complaints. He denies any fevers, rigors, chills. Denies any nausea, vomiting, vomiting blood, passing blood in the stools. He has not had a bowel movement since admission. OBJECTIVE: Vital signs: Temperature 97.8 degrees, pulse 62, respiratory rate 17, blood pressure 127/68, saturating 100% room air. General Appearance: Moderately built, lying in bed in no acute distress. HEENT: Mild pallor. No icterus. Neck: Supple. abdomen: Soft. No guarding, no rebound. Extremities: No cyanosis, clubbing, or edema. Neurologic: Alert, awake, oriented. LABORATORIES: Hemoglobin and hematocrit are 12.2 and 36.8, white count of 5.2, platelet count of 163,000. INR 1, PT of 10.5, PTT of 26.3. Sodium 143, potassium 3.7, chloride 104, bicarb 27, anion gap 12, BUN of 9, creatinine 0.9, glucose of 102, calcium is 8.7, magnesium 2. Total bilirubin is 0.34, AST 14, ALT 46, alkaline phosphatase 62. Total protein 5.7, albumin of 3.9. IMPRESSION AND PLAN: 1. Foreign body ingestion, which was removed yesterday. 2. Erosive gastritis and reflux disease. Continue on omeprazole once daily for 4 to 6 weeks, and then wean down to Zantac 150 mg p.o. b.i.d. 3. Alcoholism. The patient counseled to quit alcohol completely. Primary care team is watching for delirium or withdrawal signs. 4. The patient is on high doses of narcotics, which can make him constipated, so we will start him on Dulcolax suppository at bedtime. We will also try to recommend to lower the dose of narcotics as low as possible. The above plan discussed with the patient and nursing staff. cc: MD Enoch Clark MD
[2017-03-09] MEDS: NS 1,000 ML IV SCH (13:49)
[2017-03-09 15:12] VITALS: BP 127/67
--- NOTE | 2017-03-09 15:28 | DISCHARGE SUMMARY ---
ADMISSION DATE: 03/07/2017 DISCHARGE DATE: HOSPITAL COURSE: 26-year-old who was presented to [facility] his friends and him are drinking swallowed foreign bodies, he swallowed I think 3 razor blades. Denied any complaints of abdominal pain. He was intoxicated when he arrived, sent over here to [place] and slept most of the time. Able to get an EGD, we got an x-ray of his abdomen and it confirmed some foreign bodies left upper quadrant. Came over here. Underwent EGD with Dr. Cortez and he wanted to go home today, yesterday had some abdominal discomfort. He had been seen at [facility] in [place] for wrist sprain and apparently he had a splint wanted know if he get another splint for his right wrist. Otherwise he is not on any medications, at home he is on any medication, really does not have any followup with physicians. He has swallowed foreign objects multiple times and has an extensive psychiatric history. Will discharge him home. cc: Saúl Doherty MD
== END 2017-03-09 17:15 | disposition home or self-care (01) ==
LOC: P.ED 04:05 → 3N 07:41
PROVIDERS: ATTEND Emergency Medicine